=== PATIENT | female | born 1950 | race African-American/Black ===

== ENCOUNTER 2016-11-13 13:18 | Inpatient (IN) | payer OTHER ==
--- NOTE | ~2016-11-13 | DS ---
Unit #: [id number] #: [id number] Patient: NIC CRANE [id number] [address] [place], [place] [address] [id number] I MR#: [id number] NAME: NIC CRANE ROOM: 9 Age: 65 Sex: F Admission Date: 11/13/2016 : 1950 Discharge Date: 11/14/2016 Attending Physician: Nanda Harrison M.D. Primary Care Physician: No Primary Care Physician DISCHARGE SUMMARY ADMITTING DIAGNOSIS Shortness of breath. DISCHARGE DIAGNOSES 1. Dyspnea, resolved. 2. Sun exposure. 3. Mild elevation in lactic acidosis, resolved. 4. Smoking. 5. Chronic obstructive pulmonary disease. AUDIO VISUAL TECH Dr. Gaspar. PROCEDURE Stress test. BRIEF HOSPITAL COURSE This is a 58-year-old -[place] Islander female with a history of smoking who presented to the emergency room with sudden onset of shortness of breath which I suspect is most likely related to dehydration and sun exposure. The patient is undergoing stress test at the time of dictation and the result would be updated if it is positive. If it is negative, patient will be discharged home today after an appropriate resuscitation and hydration with a followup with her primary care at [facility]. PE is unlikely given a normal D-dimer and lack of risk factors. The patient was counseled regarding smoking cessation and she is not interested at this time. The patient would be continued on her nebulizer as needed at home. Dictated by... Portia Macias TD: 11/14/2016 10:59 JOB #: [id number] Unit #: [id number] #: [id number] Patient: NIC CRANE DISCHARGE SUMMARY Page 1 of 1 X MIN TORIBIO MD X DISCHARGE SUMMARY
--- NOTE | ~2016-11-13 | CT71 ---
[facility] A Service of [facility] RADIOLOGY TEXT RESULTS PATIENT: NIC CRANE LOCATION: C5 559-01 : 51 UNIT #: [id number] AGE: [address]: Nanda Harrison MD SEX: F ORDER DR: [id number] [facility] [address] [facility]. [place], [place] [address] [id number] E MR#: [id number] Acc #: [id number] NAME: NIC CRANE : 1950 SEX: F STUDY DATE/TIME: 11/13/2016 15:49 UNIT: DONELL ROOM: STUDY DESCRIPTION: CT Head Wo Contrast Attending Physician: Jun Bailey D.O. Ordering Physician: Jun Bailey D.O. Primary Care Physician: Landon Not Listed MEDICAL IMAGING REPORT This report is preliminary unless electronic signature is present EXAM Noncontrast head CT. HISTORY Dizziness, nausea since this morning. COMPARISON Head CT, 01/11/2010. TECHNIQUE This CT exam was performed with one or more of the following radiation dose reduction techniques: automatic exposure control, adjustment of mA and/or kV according to patient size, and iterative reconstruction. FINDINGS Axial noncontrast imaging of the brain demonstrates the brain parenchyma to be normal. No evidence of mass, mass effect, or midline shift. No hemorrhage or abnormal extraaxial fluid collections identified. The bony calvaria, skull base, mastoids unremarkable. There is deformity of the medial wall of the left orbit suggesting an old medial orbital wall blowout fracture. Correlate with clinical history. IMPRESSION 1. No acute intracranial abnormality identified. 2. Questionable old medial orbital wall blowout fracture on the left. Dictated by... Mary Prince M.D. THIS IS AN ELECTRONICALLY VERIFIED REPORT Mary Prince M.D. at 11/14/2016 7:26 AM [facility] A Service of [facility] RADIOLOGY TEXT RESULTS PATIENT: NIC CRANE LOCATION: [facility] 559- : 51 UNIT #: [id number] AGE: [address]: Nanda Harrison MD SEX: F ORDER DR: BALDOMERO/prasad TD: 11/13/2016 16:34 JOB #: [id number] MEDICAL IMAGING REPORT Page 1 of 1 COPY
--- NOTE | ~2016-11-13 | CR72 ---
[facility] A Service of [facility] RADIOLOGY TEXT RESULTS PATIENT: NIC CRANE LOCATION: [facility] 559- : 51 UNIT #: [id number] AGE: [address]: Nanda Harrison MD SEX: F ORDER DR: [id number] [facility] [address] [facility] [address] [facility]. [place], [place] [address] [id number] E MR#: [id number] Acc #: [id number] NAME: NIC CRANE : 1950 SEX: F STUDY DATE/TIME: 11/13/2016 13:50 UNIT: DONELL ROOM: STUDY DESCRIPTION: CR Chest Single View Portable Attending Physician: Jun Bailey D.O. Ordering Physician: Jun Bailey D.O. Primary Care Physician: Landon Not Listed MEDICAL IMAGING REPORT This report is preliminary unless electronic signature is present EXAM Portable chest. INDICATION Shortness of breath today. COMPARISON Compared with 02/01/2012. FINDINGS There are emphysematous changes of the lungs. There is no airspace consolidation. Calcified hilar lymph nodes on the left. Heart size normal. IMPRESSION No active disease. Dictated by... Christopher Prince M.D. THIS IS AN ELECTRONICALLY VERIFIED REPORT Christopher Prince M.D. at 11/14/2016 7:03 AM GRETA/prasad TD: 11/13/2016 15:08 JOB #: [id number] MEDICAL IMAGING REPORT Page 1 of 1 COPY
--- NOTE | ~2016-11-13 | CO ---
Unit #: [id number] #: [id number] Patient: NIC CRANE [id number] [address] [facility]. [place], [place] [address] [id number] I MR#: [id number] NAME: NIC CRANE ROOM: [facility] Age: 65 Sex: F Admission Date: 11/13/2016 : 1950 Attending Physician: Nanda Harrison M.D. Primary Care Physician: No Primary Care Physician Consultation Date: 11/14/2016 CONSULTATION REPORT REASON FOR CONSULT Chest pain. HISTORY OF PRESENT ILLNESS The patient is a 65-year-old female who has only history of prediabetes recently diagnosed, asthma, COPD, as well as tobacco abuse on and off for the last 20 years. The patient also states that she recently had an ultrasound of the thyroid for an abnormal thyroid, but no further details were able to be obtained. The patient states that she woke up yesterday morning around 6 a.m. with shortness of breath, dizziness and vomiting, and throughout the course of the day she was out running errands and began to have some chest tightness as she stood at a [employer] stop. The patient states that she came to the hospital around 1 or 2. They gave her a breathing treatment, and at that time it did improve her symptoms. The patient states that currently she has no further symptoms of shortness of breath, dizziness, vomiting or the chest tightness. The patient denied any kind of diaphoresis with it. She denied any palpitations or near syncopal events. The patient is very unclear on history details, as well as her workup in the past; however, she states that on a good day, when it is not hot and humid out, she is able to walk about a block without having to stop because of shortness of breath or because of chest pain, pressure or tightness. The patient's symptoms seem to be more related to when it is hot and humid out and she has difficulty breathing. The patient states that she has had an echo, cath and a stress test, all at [facility] within the last 3-4 years, but those records at this time are unavailable. She states that the doctor told her she had a stiffening of the heart, but her arteries looked fine and she did not require any sujata of a stent. Here the patient's EKG shows normal sinus rhythm with no acute changes. Her troponin is negative x1 at less than 0.05. Chest x-ray shows no acute changes, and her BNP is negative. PAST MEDICAL HISTORY 1. Prediabetes, recently diagnosed. 2. Asthma. 3. COPD. SURGICAL HISTORY Heart surgery as a child where she had a sharp object that penetrated her Unit #: [id number] #: [id number] Patient: NIC CRANE heart, but not further heart surgery since. SOCIAL HISTORY Patient is a dpx-womn-dga-day smoker for the last 4 years but states she has smoked on and off for the last 20 years. Never smoked more than a pack a day; mostly just a pack a month. She denies ever any alcohol abuse and denies any other drug abuse. FAMILY HISTORY She states that her mom had an LA at age 30, but she ultimately of cancer later in life. She is unclear on any details of her father, as he was not in the home. She does have brothers and sisters who are all living, and she does not know of anyone having heart problems. ALLERGIES Sulfa and prednisone. HOME MEDICATIONS The only one listed is amoxicillin; however, there is no dosing and is unlikely a maintenance medication. It appears the patient does not take any kind of routine maintenance medications daily. DIAGNOSTIC STUDIES LABORATORY STUDIES: White count 9.5, hemoglobin 13.8, hematocrit 42.2, platelets 260. INR 1. Troponin less than 0.05. Lactic acid 2.3. Sodium 141, potassium 4.1, chloride 108, CO2 27, glucose 131, BUN 11, creatinine 0.6. D-dimer was 197. BNP was 8. IMAGING: Chest x-ray shows no active disease. CT of the head shows no acute intracranial abnormalities. CARDIOVASCULAR: EKG shows normal sinus rhythm with good R wave progression with some nonspecific T wave abnormalities. IMPRESSION 1. Chest tightness and shortness of air, possibly ischemic heart disease. 2. History of penetrating wound of the heart at age 5. 3. Prediabetes recently diagnosed. 4. Nicotine abuse. PLAN Advised the patient that she needs to stop smoking to help improve her lung status. Will plan to do a walking Lexiscan study today with the patient. She does report having had a reaction in the past to adenosine; therefore, will only plan to complete a walking Lexiscan. If she is unable to complete, test will be aborted. Will obtain two-D echo to evaluate LV function and valves. Patient follows with Dr. Modi in the office; therefore, if these tests are normal, the patient could be discharged later today to follow up in the office with Dr. Modi. Will obtain records from [facility], as well, regarding her recent cardiac workup. Further recommendations pending current testing workup. Dictated by... Cheryl Suggs APRN for Unit #: [id number] #: [id number] Patient: NIC CRANE Portia Tavares TD: 11/14/2016 15:18 JOB #: [id number] CONSULTATION REPORT Page 1 of 1 X X CONSULTATION REPORT
--- NOTE | ~2016-11-13 | ST ---
Unit #: [id number] #: [id number] Patient: NIC CRANE [id number] [place], [place] [address] [id number] I MR#: [id number] NAME: NIC CRANE : 1950 SEX: F STUDY DATE/TIME: UNIT: C5B ROOM: 559 STUDY DESCRIPTION: Stress Test Attending Physician: Nanda Harrison M.D. Primary Care Physician: No Primary Care Physician CARDIOLOGY REPORT EXAM Walking Lexiscan Cardiolite Stress Test DESCRIPTION Baseline EKG - normal sinus rhythm with ventricular rate 71 beats/minute, left atrial abnormality. Q wave in V1, low voltage in V2. Slightly prolonged QT. Lexiscan is a four minute test with Lexiscan being injected within the first minute followed by Cardiolite. EKG during the test showed some nonspecific ST-T wave abnormalities in inferior lateral lead, otherwise unremarkable. The patient had no complaints of chest pain, palpitations or dizziness. Had increased shortness of breath and fatigueness and had some nausea and dry heaving and resolved in the end of recovery phase. Maximum heart rate response was 139 beats/minute with a maximum blood pressure response of 162/90 mmHg. Cardiolite was injected after Lexiscan within the first minute of the test. Radionuclide test pending. Please correlate with nuclear images. Dictated by... Kathleen Chaudhari A.P.R.N. for Portia Kaplan/jena TD: 11/14/2016 11:18 JOB #: [id number] Unit #: [id number] #: [id number] Patient: NIC CRANE CARDIOLOGY REPORT Page 1 of 1 X Kathleen Chaudhari APRN CARDIOLOGY REPORT
--- NOTE | ~2016-11-13 | EKG ---
PATIENT: NIC CRANE UNIT #: [id number] Ventricular Rate: 69 BPM Atrial Rate: 69 BPM P-R Interval: 158 ms QRS Duration: 86 ms Q-T Interval: 398 ms QTC Calculation(Bezet): 426 ms P [place]: 66 degrees Calculated R [place]: -10 degrees Calculated T [place]: 57 degrees Diagnosis Line: Normal sinus rhythm Diagnosis Line: Normal ECG Diagnosis Line: When compared with ECG of 09-NOV-2010 09:37, Diagnosis Line: Nonspecific T wave abnormality, improved in Diagnosis Line: Anterolateral leads Diagnosis Line: Confirmed by LAURIE HERNANDEZ MD ([id number]) on Diagnosis Line: 11/15/2016 3:41:56 PM INTERPRETING MD: DRE
--- NOTE | ~2016-11-13 | TH ---
Unit #: [id number] #: [id number] Patient: NIC CRANE [id number] [address] [address] [id number] I MR#: [id number] NAME: NIC CRANE : 1950 SEX: F STUDY DATE/TIME: 11/14/2016 UNIT: C5B ROOM: 559 STUDY DESCRIPTION: Lexiscan stress test - Nuclear Attending Physician: Nanda Harrison M.D. Primary Care Physician: No Primary Care Physician CARDIOLOGY REPORT PROCEDURE PERFORMED Lexiscan Cardiolite stress test - Nuclear portion. PROCEDURE Using technetium 99m-labeled Cardiolite, rest and stress SPECT images were obtained. Multiple SPECT images were obtained in various views, including horizontal and vertical long axis and short axis views of the left ventricle. Images were obtained by gated SPECT method. The patient was administered 10.99 mCi of Cardiolite at rest. The patient was administered 31.3 mCi of Cardiolite after Lexiscan infusion was completed. On the stress images, there is normal perfusion noted. The rest images show normal perfusion. Comparing the rest and stress images, there is no stress-induced ischemia noted. The left ventricular ejection fraction is calculated to be 69%. There is no focal wall motion abnormality seen. CONCLUSION 1. No stress-induced ischemia noted. 2. The left ventricular ejection fraction is calculated to be 69%. 3. There is no focal wall motion abnormality seen. 4. Normal Lexiscan Cardiolite stress test. Dictated by... Portia Kaplan TD: 11/14/2016 14:13 JOB #: [id number] CARDIOLOGY REPORT Page 1 of 1 X Palma Lawrence MD <ELECTRONICALLY SIGNED> 12/21/16 1429 CARDIOLOGY REPORT
--- NOTE | ~2016-11-13 | HP ---
Unit #: [id number] #: [id number] Patient: NIC CRANE [id number] [address] [place], [place] [address] [id number] Ronna MR#: [id number] NAME: NIC CRANE ROOM: 55 Age: 65 Sex: F Admission Date: 11/13/2016 : 1950 Attending Physician: Nanda Harrison M.D. Primary Care Physician: No Primary Care Physician HISTORY AND PHYSICAL Date I evaluated the patient was November 14, 2016. REASON FOR ADMISSION Shortness of breath. HISTORY OF PRESENT ILLNESS This is a very pleasant 65-year-old -[place] female with a past medical history significant for extensive smoking, COPD, who presented t the emergency department with a sudden onset of shortness of breath and respiratory distress. The patient stated that she was fine and she went to sleep but then she suddenly woke up unable to breathe. She stated that she was also itching her neck and she had some sweats. She denied any fever, chills or cough. She stated that she was in the sun yesterday also. The patient denied any overt and clear chest pain. The patient stated that she has been on Augmentin for a week and she thought she was having a drug reaction. However, she has taken it for a week for tooth issues. The patient continues to smoke extensively but she never tried to quit smoking. The patient denied any other symptoms like nausea, vomiting or diarrhea. PAST MEDICAL HISTORY COPD. PAST SURGICAL HISTORY 1. Heart surgery when she was a kid but unclear what kind of surgery. 2. Left heart cardiac catheterization in 2013. ALLERGIES No known drug allergies. HOME MEDICATIONS Augmentin. SOCIAL HISTORY Patient smokes up to one pack per day for at least 25-30 years. No history of alcohol or drug abuse. FAMILY HISTORY Unit #: [id number] #: [id number] Patient: NIC CRANE Coronary artery disease. ALLERGIES No known drug allergies. REVIEW OF SYSTEMS Twelve point review of systems were obtained and were negative except for what was mentioned in the HPI. PHYSICAL EXAMINATION GENERAL: The patient is in no acute distress at this point. VITAL SIGNS: Temperature 98.2, pulse 83, blood pressure 131.92. HEENT: Atraumatic, normocephalic. PERRLA, EOMI. NECK: Supple. No JVD, no lymphadenopathy. CHEST: Clear to auscultation bilaterally. HEART: S1, S2. No murmur, gallops or rubs. ABDOMEN: Soft, nontender. Bowel sounds positive. No hepatosplenomegaly. EXTREMITIES: No edema or cyanosis. SKIN: No rashes. EDITOR CONTINUITY AND SCRIPT: Awake, alert, oriented x3. No focal motor/sensory deficits. SKIN: No rashes. DIAGNOSTIC STUDIES LABORATORY: Creatinine 0.6, sodium 141, white blood count 9.5, platelets 260. IMAGING: Chest x-ray is normal. ASSESSMENT 1. Dyspnea. 2. Chronic obstructive pulmonary disease. 3. Lactic acidosis. 4. Smoking. PLAN 1. Etiology of dyspnea is unclear. It could be related to sun exposure and dehydration. However, underlying cardiac etiology needs to be ruled out. I doubt it is PE as patient is very active and has no risk factor. In addition, her D-dimer was negative on presentation. 2. The patient was hydrated with normal saline for a mild elevation in lactic acidosis which, again, I doubt it is related to infection and most likely it is related to dehydration and sun exposure. 3. Stress test per cardiology. 4. Patient was counseled for ten minutes about smoking cessation. She is not interested at this time. 5. Continue DuoNeb as needed. 6. DVT prophylaxis. Dictated by Portia Macias TD: 11/14/2016 10:47 Unit #: [id number] #: [id number] Patient: NIC CRANE JOB #: [id number] HISTORY AND PHYSICAL Page 1 of 1 X MIN TORIBIO MD HISTORY AND PHYSICAL
[~2016-11-13 13:18] MED LIST: ACETAMINOPHEN PO; ALBUTEROL17 GM; ANTIVERT PO; BACTRIM DS TABL1 TA2 PO; BENADRYL PO; EPIPEN0.3 MG/0.1 IM; LASIX20 MG PO; MACROBID100 MG PO; MEDROL DOSEPAK4 MG PO; NAPROSYN500 MG PO; NORCO 5/325 TAB1 TAB PO; PEN-VEE K PO; PEPCID AC20 M2 PO; PREDNISONE10 MG/DOSE PO; SENNA PO; VICODIN 5/500 T1 TAB PO; ZANTAC150 M1 PO; ZITHROMAX1 G/PKT PO
[2016-11-13 14:06] LABS: ARTERIAL BLD GAS O2 SATURATION 96.1 % (90.0-100.0); ARTERIAL BLOOD GAS ALLEN TEST N; ARTERIAL BLOOD GAS ART SITE RIGHT RADIAL; ARTERIAL BLOOD GAS CARBOXY HB 0.5 %sat (0.0-9.0); ARTERIAL BLOOD GAS DELIVERY ROOM AIR; ARTERIAL BLOOD GAS HCO3 23.9 mmol/L; ARTERIAL BLOOD GAS MET HB 0.6 %sat (0.0-2.0); ARTERIAL BLOOD GAS PCO2 39.2 mmHg (35.0-45.0); ARTERIAL BLOOD GAS PO2 78.8 mmHg (80.0-100); ARTERIAL BLOOD GAS pH 7.393 (7.350-7.450); ARTERIAL DRAW? YES
[2016-11-13 14:42] LABS: BASOPHIL% 0.3 % (0-2.5); EOSINOPHIL# 0.1 X10e3 (0-0.7); EOSINOPHIL% 0.8 % (0.0-7.0); HEMATOCRIT 42.2 % (35.0-45.0); HEMOGLOBIN 13.8 gm/dL (12.0-16.0); LYMPHOCYTE% 31.6 % (17.0-45.0); MEAN CELL VOLUME 94.5 FL (83-96); MEAN CORPUSCULAR HGB CONC 32.8 g/dL (30-36); MEAN PLATELET VOLUME 7.8 FL (6.5-11.5); MONOCYTE# 0.6 X10e3 (0-1.0); MONOCYTE% 6.8 % (3.0-12.0); NEUTROPHIL# 5.8 X10e3 (1.5-7.1); NEUTROPHIL% 60.5 % (40-75); PLATELET COUNT 260 X10e3 (140-420); RED BLOOD COUNT 4.46 X10e (3.90-5.30); RED CELL DISTRIBUTION WIDTH 13.5 % (11.0-15.5); WHITE BLOOD COUNT 9.5 X10e3 (4.0-10.5)
[2016-11-13 14:43] LABS: DIFF IND NO
[2016-11-13 15:01] LABS: PARTIAL THROMBOPLASTIN TIME 26.1 SECONDS (23.5-31.3); PROTHROMBIN TIME (PATIENT) 10.8 SECONDS (10.0-11.7)
[2016-11-13 15:05] LABS: POC - CKMB 1.1 ng/mL (0.0-7.9); POC - TROPONIN <0.05 ng/mL (<=0.05)
[2016-11-13 15:06] LABS: ALKALINE PHOSPHATASE 95 U/L (32-92); ALT (SGPT) 14 U/L (10-40); AST (SGOT) 19 U/L (10-42); BILIRUBIN, DIRECT <0.1 mg/dL (0.0-0.2); BILIRUBIN,INDIRECT 0.2 mg/dL (0.0-0.9); BILIRUBIN,TOTAL 0.3 mg/dL (0.2-2.0); BLOOD UREA NITROGEN 11 mg/dL (9-23); BUN/CREATININE RATIO 18.33; CALCIUM SERUM 9.4 mg/dL (8.4-10.2); CARBON DIOXIDE 27 mmol/L (22-31); CHLORIDE 108 mmol/L (100-111); CREATININE SERUM 0.6 mg/dL (0.6-1.4); GLOM FILT RATE Estimated 111.6 mL/min (>60); GLUCOSE FASTING 131 mg/dL (70-110); POTASSIUM 4.1 mmol/L (3.5-5.1); PROTEIN TOTAL SERUM 7.3 g/dL (6.0-8.3); SODIUM 141 mmol/L (135-145)
[2016-11-13] MEDS ORDERED: NO MEDICATIONS (20:16)
[2016-11-14] MEDS ORDERED: AMOXICILLIN PO (00:05)
== END 2016-11-14 16:02 | disposition home or self-care (01) | DRG 923 ==
LOC: CED 13:18 → CEDOF 18:52 → CED 20:21 → CEDOF 23:58 → C5B 23:58
PROVIDERS: Emergency Medicine
PROC: B24BYZZ Ultrasonography of Heart with Aorta using Other Contrast (ICD-10-PCS; principal; 2016-11-14)
DX: T75.89XA Other specified effects of external causes, initial encounter (principal); E87.2 Acidosis; X30.XXXA Exposure to excessive natural heat, initial encounter; R06.00 Dyspnea, unspecified; R07.89 Other chest pain; J44.9 Chronic obstructive pulmonary disease, unspecified; F17.210 Nicotine dependence, cigarettes, uncomplicated; E86.0 Dehydration; J45.909 Unspecified asthma, uncomplicated; R73.03 Prediabetes; T50.3X5A Adverse effect of electrolytic, caloric and water-balance agents, initial encounter
CPT/HCPCS: 36600; 70450; 71010; 78452; 80048; 80076; 82553; 82803; 83605; 83880; 84484; 85025; 85379; 85610; 85730; 93005; 93017; 93306; 94640; 99285; A9500; J1650; J2785